=== PATIENT | female | born 1965 ===

== ENCOUNTER 2017-08-30 00:13 | Observation (INO) | payer OTHER ==
[2017-08-30 00:36] VITALS: BMI 25.7
[2017-08-30] MEDS ORDERED: Sodium Chloride 0.9% 1,000 ML IV ONE (00:37)
--- NOTE | 2017-08-30 00:39 | C.PDOC ---
History Of Present Illness 52 year old female presents to the ED with complaints of palpitations that began a few minutes prior to arrival. She denies any pervious similiar episodes. Patient denies chest pain, shortness of breath, weakness, numbness, or fever. History Per: Patient History/Exam Limitations: no limitations Onset/Duration Of Symptoms: Mins Current Symptoms Are (Timing): Still Present Pain Scale Rating Of: 0 Modifying Factors: None Exacerbating Factors: None Alleviating Factors: None Recent travel outside of the [place]: No Past Medical History Reviewed: Historical Data, Nursing Documentation, Vital Signs Vital Signs: Last Vital Signs Temp 98 F 08/30/17 00:43 Pulse 84 08/30/17 02:50 Resp 16 08/30/17 02:50 BP 120/85 08/30/17 02:50 Pulse Ox 100 08/30/17 02:50 Family History: States: Unknown Family Hx Review Of Systems Constitutional: Negative for: Fever, Chills Cardiovascular: Positive for: Palpitations. Negative for: Chest Pain Respiratory: Negative for: Cough, Shortness of Breath Gastrointestinal: Negative for: Nausea, Vomiting Neurological: Negative for: Weakness, Numbness Physical Exam - Physical Exam Appears: Non-toxic, In Acute Distress (patient appears anxious due to palpitations) Skin: Warm, Dry, No Diaphoretic Head: Atraumatic, Normacephalic Eye(s): bilateral: Normal Inspection, PERRL, EOMI Oral Mucosa: Moist Neck: Supple Chest: Symmetrical, No Deformity Cardiovascular: No Murmur, Other (Patient is tachycardic ) Respiratory: Normal Breath Sounds, No Rales, No Rhonchi, No Wheezing Gastrointestinal/Abdominal: Soft, No Tenderness, No Distention, No Guarding, No Rebound Extremity: Normal ROM, No Tenderness Neurological/Psych: Oriented x3, Normal Speech, Normal Cognition, Normal Cranial Nerves, No Cerebellar Signs, Normal Motor, Normal Sensation ED Course And Treatment - Laboratory Results Result Diagrams: 08/30/17 00:48 08/30/17 00:48 ECG: Interpreted By Me, Viewed By Me ECG Rhythm: SVT ECG Interpretation: No Acute Changes, Abnormal Interpretation Of ECG: SVT,abnormal tracings Rate From EC (repeat after adenosin-Sinus tach. nonspc. ST-T changes, rte of 102) O2 Sat by Pulse Oximetry: 100 (RA) Pulse Ox Interpretation: Normal - Radiology CXR: Interpreted by Me, Viewed By Me CXR Interpretation: Yes: No Acute Disease Progress Note: EKG, CXR, labs, and blood work were ordered. Patient was given adenosin 6 mg and then 12 mg. Disposition Discussed With : David Barlow Doctor Will See Patient In The: Hospital Counseled Patient/Family Regarding: Diagnosis - Disposition Disposition: HOSPITALIZED Disposition Time: 02:26 Condition: STABLE - POA Present On Arrival: None - Clinical Impression Clinical Impression: SVT (supraventricular tachycardia) - Scribe Statement The provider has reviewed the documentation as recorded by the Scribe Maine Alvarez All medical record entries made by the Isabelibe were at my direction and personally dictated by me. I have reviewed the chart and agree that the record accurately reflects my personal performance of the history, physical exam, medical decision making, and the department course for this patient. I have also personally directed, reviewed, and agree with the discharge instructions and disposition.
[2017-08-30 00:52] LABS: BASO # 0.1 K/uL (0.0-0.2); BASO % 0.7 % (0.0-2.0); EOS # 0.3 K/uL (0.0-0.7); EOS % 2.3 % (0.0-4.0); HEMATOCRIT 41.2 % (34.0-47.0); LYMPH # 7.6 K/uL (1.0-4.3); LYMPH % 54.3 % (20.0-40.0); MEAN CELL VOLUME 85.1 fL (81.0-99.0); MEAN CORPUSCULAR HEMOGLOBIN 30.4 pg (27.0-31.0); MEAN CORPUSCULAR HGB CONC 35.7 g/dL (33.0-37.0); MEAN PLATELET VOLUME 8.9 fL (7.2-11.7); MONO # 0.9 K/uL (0.0-0.8); MONO % 6.5 % (0.0-10.0); NRBC % 0.2 % (0.0-2.0); PLATELET COUNT 270 K/uL (130-400); RED CELL DISTRIBUTION WIDTH 14.3 % (11.5-14.5)
[2017-08-30 00:59] LABS: CHLORIDE 99 mmol/L (98-107); SODIUM 141 mmol/L (132-148)
[2017-08-30 01:01] LABS: ALB/GLOB RATIO 1.1 (1.0-2.1); AST/SGOT 27 U/L (14-36); BILIRUBIN,TOTAL 0.4 mg/dL (0.2-1.3); CARBON DIOXIDE 22 mmol/L (22-30); GFR AFRICAN-AMERICAN > 60; INR 0.9; PARTIAL THROMBOPLASTIN TIME 29 SECONDS (21-34)
[2017-08-30 01:02] LABS: ALKALINE PHOSPHATASE 65 U/L (38-126); ALT/SGPT 44 U/L (9-52); BLOOD UREA NITROGEN 14 mg/dL (7-17); CALCIUM 9.9 mg/dl (8.6-10.4); GLUCOSE,RANDOM 107 mg/dL (65-105)
[2017-08-30] MEDS ORDERED: Potassium Chloride 20 mEq ER Tab PO STA (01:20)
[2017-08-30] MEDS ORDERED: Potassium Chloride 20 mEq ER Tab PO ONE (01:21)
[2017-08-30 02:01] LABS: BASOPHIL 1 % (0-2); EOSINOPHIL 2 % (0-4); NEUTROPHIL 29 % (50-75); REACTIVE LYMPHOCYTES 7 % (0-0); TOTAL CELLS COUNTED 100
[2017-08-30] MEDS ORDERED: Sodium Chloride 0.9% 1,000 ML IV SCH (04:00)
[2017-08-30] MEDS: Pantoprazole 40 mg EC Tab PO SCH (09:10)
[2017-08-30] MEDS: Enoxaparin 40 mg Syringe SC SCH (09:10)
--- NOTE | 2017-08-30 09:51 | RAD ---
PROCEDURE: CHEST RADIOGRAPH, 1 VIEW HISTORY: chest pain COMPARISON: None available. FINDINGS: LUNGS: No focal consolidation. There are 2 tiny rounded densities left mid lung field the that could represent vessel on end versus tiny granulomata. . Follow-up chest radiographs at 2 month interval could be performed to assess stability PLEURA: No pneumothorax or pleural fluid seen. CARDIOVASCULAR: Normal. OSSEOUS STRUCTURES: No significant abnormalities. VISUALIZED UPPER ABDOMEN: Normal. OTHER FINDINGS: None. IMPRESSION: No acute consolidation. 2 tiny rounded density left mid to lower lung field may represent vessel on end artifact versus tiny granulomata. Follow-up chest radiograph at two month interval could be performed to assess stability. Note this report was placed in PA review folder for followup
--- NOTE | 2017-08-30 12:50 | CP.PCM.CON ---
History of Present Illness - History of Present Illness History of Present Illness: Consultation requested for evaluation of SVT HPI: 52-year-old female with no significant past medical history brought to the hospital with sudden onset of palpitations during sex with her . According to the patient this is her first episode denies having any significant stress drug use asked excess alcohol consumption. She had recently come back from [facility] about 2 weeks ago denies any sick contacts. Denies any chest pain shortness of breath headache nausea vomiting diarrhea or dysuria. Patient on arrival to the emergency room was given adenosine which resolved her SVT. Past medical history none however last visit to the physician was about 8-10 years ago. 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 Review of Systems - Constitutional Constitutional: As Per HPI - EENT Eyes: As Per HPI Nose/Mouth/Throat: As Per HPI - Breasts Breasts: As Per HPI - Cardiovascular Cardiovascular: As Per HPI - Respiratory Respiratory: As Per HPI - Gastrointestinal Gastrointestinal: As Per HPI - Genitourinary Genitourinary: As Per HPI - Reproductive: Female Reproductive:Female: As Per HPI - Musculoskeletal Musculoskeletal: As Per HPI - Integumentary Integumentary: As Per HPI - Neurological Neurological: As Per HPI - Psychiatric Psychiatric: As Per HPI - Endocrine Endocrine: As Per HPI - Hematologic/Lymphatic Hematologic: As Per HPI Past Patient History - Past Medical History & Family History Past Medical History?: Yes - Past Social History Smoking Status: Never Smoked - CARDIAC Hx Cardiac Disorders: Yes Other/Comment: palpatations at young age - PULMONARY Hx Respiratory Disorders: No - NEUROLOGICAL Hx Neurological Disorder: No - HEENT Hx HEENT Problems: No - RENAL Hx Chronic Kidney Disease: No - ENDOCRINE/METABOLIC Hx Endocrine Disorders: No - HEMATOLOGICAL/ONCOLOGICAL Hx Blood Disorders: Yes Other/Comment: hx hepatitis when young doesnt know type - INTEGUMENTARY Hx Dermatological Problems: No - MUSCULOSKELETAL/RHEUMATOLOGICAL Hx Musculoskeletal Disorders: No Hx Falls: No - GASTROINTESTINAL Hx Gastrointestinal Disorders: No - GENITOURINARY/GYNECOLOGICAL Hx Genitourinary Disorders: No - PSYCHIATRIC Hx Substance Use: No - SURGICAL HISTORY Hx Surgeries: Yes Hx Section: Yes (x2) Hx Tubal Ligation: Yes Other/Comment: ovarian cyst removed right ,left ovary half - ANESTHESIA Hx Anesthesia: Yes Hx Anesthesia Reactions: No Hx Malignant Hyperthermia: No Has any member of the family had a problem w/ anesthesia?: No Meds Home Medications: Home Medication List Medication Instructions Recorded Confirmed Type Metoprolol Tartrate 25 mg PO DAILY #30 tablet 09/01/17 Rx Allergies/Adverse Reactions: Allergies Allergy/AdvReac Type Severity Reaction Status Date / Time No Known Allergies Allergy Verified 08/30/17 00:48 - Medications Medications: Current Medications Aspirin (Aspirin) 325 mg PO DAILY [facility] Last Admin: 08/30/17 09:10 Dose: 325 mg Enoxaparin Sodium (Lovenox) 40 mg SC DAILY [facility] Last Admin: 08/30/17 09:10 Dose: 40 mg Sodium Chloride (Sodium Chloride 0.9%) 1,000 mls @ 30 mls/hr IV .Q24H [facility] Last Admin: 08/30/17 04:00 Dose: 30 mls/hr Pantoprazole Sodium (Protonix Ec Tab) 40 mg PO DAILY [facility] Last Admin: 08/30/17 09:10 Dose: 40 mg Physical Exam - Constitutional Appears: Well - Head Exam Head Exam: ATRAUMATIC, NORMAL INSPECTION, NORMOCEPHALIC - Eye Exam Eye Exam: EOMI, Normal appearance, PERRL Pupil Exam: NORMAL ACCOMODATION, PERRL - ENT Exam ENT Exam: Mucous Membranes Moist, Normal Exam - Neck Exam Neck exam: Positive for: Normal Inspection - Respiratory Exam Respiratory Exam: Clear to Auscultation Bilateral, NORMAL BREATHING PATTERN - Cardiovascular Exam Cardiovascular Exam: REGULAR RHYTHM - GI/Abdominal Exam GI & Abdominal Exam: Normal Bowel Sounds, Soft. absent: Tenderness - Rectal Exam Rectal Exam: NORMAL INSPECTION - Exam Exam: Circumcision, NORMAL INSPECTION External exam: NORMAL EXTERNAL EXAM Speculum exam: NORMAL SPECULUM EXAM Bimanual exam: NORMAL BIMANUAL EXAM - Extremities Exam Extremities exam: Positive for: normal inspection - Back Exam Back exam: NORMAL INSPECTION - Neurological Exam Neurological exam: Alert, CN II-XII Intact, Normal Gait, Oriented x3, Reflexes Normal - Psychiatric Exam Psychiatric exam: Normal Affect, Normal Mood - Skin Skin Exam: Dry, Intact, Normal Color, Warm Results - Vital Signs Recent Vital Signs: Last Vital Signs Temp 98.9 F 08/30/17 08:30 Pulse 80 08/30/17 08:30 Resp 18 08/30/17 08:30 BP 108/72 08/30/17 08:30 Pulse Ox 96 08/30/17 08:30 - Labs Result Diagrams: 09/01/17 06:11 09/01/17 06:11 Labs: Laboratory Results - last 24 hr 08/30/17 08/30/17 08/30/17 00:48 00:48 00:48 WBC 14.0 H RBC 4.84 Hgb 14.7 Hct 41.2 MCV 85.1 MCH 30.4 MCHC 35.7 RDW 14.3 Plt Count 270 MPV 8.9 Neut % (Auto) 36.2 L Lymph % (Auto) 54.3 H [place] % (Auto) 6.5 Eos % (Auto) 2.3 Baso % (Auto) 0.7 Neut # 5.1 Lymph # 7.6 H [place] # 0.9 H Eos # 0.3 Baso # 0.1 Neutrophils % (Manual) 29 L Lymphocytes % (Manual) 56 H Reactive Lymphs % 7 H Monocytes % (Manual) 5 Eosinophils % (Manual) 2 Basophils % (Manual) 1 Platelet Estimate Normal RBC Morphology Normal PT 10.2 INR 0.9 APTT 29 D-Dimer, Quantitative < 200 Sodium 141 Potassium 3.0 L Chloride 99 Carbon Dioxide 22 Anion Gap 23 H BUN 14 Creatinine 0.7 Est GFR ( Amer) > 60 Est GFR (Non-Af Amer) > 60 Random Glucose 107 H Calcium 9.9 Total Bilirubin 0.4 AST 27 ALT 44 Alkaline Phosphatase 65 Total Creatine Kinase CK-MB (Mass) Troponin I < 0.0120 Troponin I, Quant Total Protein 9.0 H Albumin 4.8 Globulin 4.2 H Albumin/Globulin Ratio 1.1 08/30/17 12:00 WBC RBC Hgb Hct MCV MCH MCHC RDW Plt Count MPV Neut % (Auto) Lymph % (Auto) [place] % (Auto) Eos % (Auto) Baso % (Auto) Neut # Lymph # [place] # Eos # Baso # Neutrophils % (Manual) Lymphocytes % (Manual) Reactive Lymphs % Monocytes % (Manual) Eosinophils % (Manual) Basophils % (Manual) Platelet Estimate RBC Morphology PT INR APTT D-Dimer, Quantitative Sodium Potassium Chloride Carbon Dioxide Anion Gap BUN Creatinine Est GFR ( Amer) Est GFR (Non-Af Amer) Random Glucose Calcium Total Bilirubin AST ALT Alkaline Phosphatase Total Creatine Kinase 101 CK-MB (Mass) 1.15 Troponin I Troponin I, Quant 0.0210 Total Protein Albumin Globulin Albumin/Globulin Ratio Assessment & Plan (1) SVT (supraventricular tachycardia) Assessment and Plan: Echo Serial TnI telemetry Status: Acute
--- NOTE | 2017-08-30 14:31 | CP.PCM.HP ---
Past Patient History - Past Medical History & Family History Past Medical History?: Yes - Past Social History Smoking Status: Never Smoked - CARDIAC Hx Cardiac Disorders: Yes Other/Comment: palpatations at young age - PULMONARY Hx Respiratory Disorders: No - NEUROLOGICAL Hx Neurological Disorder: No - HEENT Hx HEENT Problems: No - RENAL Hx Chronic Kidney Disease: No - ENDOCRINE/METABOLIC Hx Endocrine Disorders: No - HEMATOLOGICAL/ONCOLOGICAL Hx Blood Disorders: Yes Other/Comment: hx hepatitis when young doesnt know type - INTEGUMENTARY Hx Dermatological Problems: No - MUSCULOSKELETAL/RHEUMATOLOGICAL Hx Musculoskeletal Disorders: No Hx Falls: No - GASTROINTESTINAL Hx Gastrointestinal Disorders: No - GENITOURINARY/GYNECOLOGICAL Hx Genitourinary Disorders: No - PSYCHIATRIC Hx Substance Use: No - SURGICAL HISTORY Hx Surgeries: Yes Hx Section: Yes (x2) Hx Tubal Ligation: Yes Other/Comment: ovarian cyst removed right ,left ovary half - ANESTHESIA Hx Anesthesia: Yes Hx Anesthesia Reactions: No Hx Malignant Hyperthermia: No Has any member of the family had a problem w/ anesthesia?: No Meds Allergies/Adverse Reactions: Allergies Allergy/AdvReac Type Severity Reaction Status Date / Time No Known Allergies Allergy Verified 08/30/17 00:48 Physical Exam - Constitutional Appears: Well - Head Exam Head Exam: ATRAUMATIC, NORMAL INSPECTION, NORMOCEPHALIC - Eye Exam Eye Exam: EOMI, Normal appearance, PERRL Pupil Exam: NORMAL ACCOMODATION, PERRL - ENT Exam ENT Exam: Mucous Membranes Moist, Normal Exam - Neck Exam Neck exam: Positive for: Normal Inspection - Respiratory Exam Respiratory Exam: Decreased Breath Sounds - Cardiovascular Exam Cardiovascular Exam: REGULAR RHYTHM, +S1, +S2 - GI/Abdominal Exam GI & Abdominal Exam: Diminished Bowel Sounds, Soft - Rectal Exam Rectal Exam: Deferred Results - Vital Signs Recent Vital Signs: Last Vital Signs Temp 98.9 F 08/30/17 08:30 Pulse 80 08/30/17 08:30 Resp 18 08/30/17 08:30 BP 108/72 08/30/17 08:30 Pulse Ox 96 08/30/17 08:30 - Labs Result Diagrams: 08/30/17 00:48 08/30/17 00:48 Labs: Laboratory Results - last 24 hr 08/30/17 08/30/17 08/30/17 00:48 00:48 00:48 WBC 14.0 H RBC 4.84 Hgb 14.7 Hct 41.2 MCV 85.1 MCH 30.4 MCHC 35.7 RDW 14.3 Plt Count 270 MPV 8.9 Neut % (Auto) 36.2 L Lymph % (Auto) 54.3 H [place] % (Auto) 6.5 Eos % (Auto) 2.3 Baso % (Auto) 0.7 Neut # 5.1 Lymph # 7.6 H [place] # 0.9 H Eos # 0.3 Baso # 0.1 Neutrophils % (Manual) 29 L Lymphocytes % (Manual) 56 H Reactive Lymphs % 7 H Monocytes % (Manual) 5 Eosinophils % (Manual) 2 Basophils % (Manual) 1 Platelet Estimate Normal RBC Morphology Normal PT 10.2 INR 0.9 APTT 29 D-Dimer, Quantitative < 200 Sodium 141 Potassium 3.0 L Chloride 99 Carbon Dioxide 22 Anion Gap 23 H BUN 14 Creatinine 0.7 Est GFR ( Amer) > 60 Est GFR (Non-Af Amer) > 60 Random Glucose 107 H Calcium 9.9 Total Bilirubin 0.4 AST 27 ALT 44 Alkaline Phosphatase 65 Total Creatine Kinase CK-MB (Mass) Troponin I < 0.0120 Troponin I, Quant Total Protein 9.0 H Albumin 4.8 Globulin 4.2 H Albumin/Globulin Ratio 1.1 08/30/17 12:00 WBC RBC Hgb Hct MCV MCH MCHC RDW Plt Count MPV Neut % (Auto) Lymph % (Auto) [place] % (Auto) Eos % (Auto) Baso % (Auto) Neut # Lymph # [place] # Eos # Baso # Neutrophils % (Manual) Lymphocytes % (Manual) Reactive Lymphs % Monocytes % (Manual) Eosinophils % (Manual) Basophils % (Manual) Platelet Estimate RBC Morphology PT INR APTT D-Dimer, Quantitative Sodium Potassium Chloride Carbon Dioxide Anion Gap BUN Creatinine Est GFR ( Amer) Est GFR (Non-Af Amer) Random Glucose Calcium Total Bilirubin AST ALT Alkaline Phosphatase Total Creatine Kinase 101 CK-MB (Mass) 1.15 Troponin I Troponin I, Quant 0.0210 Total Protein Albumin Globulin Albumin/Globulin Ratio
[2017-08-30] MEDS: Potassium Chloride 20 mEq ER Tab PO SCH ×2 (17:30→19:57)
--- NOTE | 2017-08-30 18:08 | CP.PCM.HP ---
<Liam Alexandre - Last Filed: 08/30/17 18:03> History of Present Illness - History of Present Illness History of Present Illness: CC: Palpitations This patient is a 52yo F w/ no PMhx who is coming to the hospital with sudden heart palpitations while she was having sex with her . This has never happened to her before. She denies any significant stress in her life, drug use , or excessive alcohol consumption in the recent past. She recently came back from [facility] 2 weeks ago, denies any sick contacts. Otherwise denies fevers/ chills, TAMAYO, CP, SOb, abdominal pain, N/V/D, dysuria/freq/urg or lower extremity pain/swelling. When she arrived in the ED, they gave her a total of 18mg of adenosine which resolved her SVT. She has not had any SVT's since then or heart palpitations. 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, independent in all IADL and ADL Present on Admission - Present on Admission Any Indicators Present on Admission: No History of DVT/PE: No History of Uncontrolled Diabetes: No Urinary Catheter: No Decubitus Ulcer Present: No Review of Systems - Constitutional Constitutional: As Per HPI Past Patient History - Past Medical History & Family History Past Medical History?: Yes - Past Social History Smoking Status: Never Smoked - CARDIAC Hx Cardiac Disorders: Yes Other/Comment: palpatations at young age - PULMONARY Hx Respiratory Disorders: No - NEUROLOGICAL Hx Neurological Disorder: No - HEENT Hx HEENT Problems: No - RENAL Hx Chronic Kidney Disease: No - ENDOCRINE/METABOLIC Hx Endocrine Disorders: No - HEMATOLOGICAL/ONCOLOGICAL Hx Blood Disorders: Yes Other/Comment: hx hepatitis when young doesnt know type - INTEGUMENTARY Hx Dermatological Problems: No - MUSCULOSKELETAL/RHEUMATOLOGICAL Hx Musculoskeletal Disorders: No Hx Falls: No - GASTROINTESTINAL Hx Gastrointestinal Disorders: No - GENITOURINARY/GYNECOLOGICAL Hx Genitourinary Disorders: No - PSYCHIATRIC Hx Substance Use: No - SURGICAL HISTORY Hx Surgeries: Yes Hx Section: Yes (x2) Hx Tubal Ligation: Yes Other/Comment: ovarian cyst removed right ,left ovary half - ANESTHESIA Hx Anesthesia: Yes Hx Anesthesia Reactions: No Hx Malignant Hyperthermia: No Has any member of the family had a problem w/ anesthesia?: No Meds Allergies/Adverse Reactions: Allergies Allergy/AdvReac Type Severity Reaction Status Date / Time No Known Allergies Allergy Verified 08/30/17 00:48 Physical Exam - Constitutional Appears: Non-toxic - Head Exam Head Exam: ATRAUMATIC - Eye Exam Eye Exam: EOMI, Normal appearance Pupil Exam: PERRL - ENT Exam ENT Exam: Mucous Membranes Moist - Neck Exam Neck exam: Positive for: Full Rom. Negative for: Lymphadenopathy, Thyromegaly - Respiratory Exam Respiratory Exam: Clear to Auscultation Bilateral, NORMAL BREATHING PATTERN. absent: Rales, Rhonchi, Wheezes - Cardiovascular Exam Cardiovascular Exam: REGULAR RHYTHM, +S1, +S2 - GI/Abdominal Exam GI & Abdominal Exam: Normal Bowel Sounds, Soft - Extremities Exam Extremities exam: Positive for: full ROM. Negative for: calf tenderness, pedal edema - Back Exam Back exam: NORMAL INSPECTION. absent: CVA tenderness (L), CVA tenderness (R) - Neurological Exam Neurological exam: Alert, CN II-XII Intact, Oriented x3 - Psychiatric Exam Psychiatric exam: Normal Affect - Skin Skin Exam: Warm Results - Vital Signs Recent Vital Signs: Last Vital Signs Temp 98.1 F 08/30/17 15:00 Pulse 87 08/30/17 15:00 Resp 20 08/30/17 15:00 BP 117/73 08/30/17 15:00 Pulse Ox 97 08/30/17 15:00 - Labs Result Diagrams: 08/30/17 00:48 08/30/17 00:48 Labs: Laboratory Results - last 24 hr 08/30/17 08/30/17 08/30/17 00:48 00:48 00:48 WBC 14.0 H RBC 4.84 Hgb 14.7 Hct 41.2 MCV 85.1 MCH 30.4 MCHC 35.7 RDW 14.3 Plt Count 270 MPV 8.9 Neut % (Auto) 36.2 L Lymph % (Auto) 54.3 H Catron % (Auto) 6.5 Eos % (Auto) 2.3 Baso % (Auto) 0.7 Neut # 5.1 Lymph # 7.6 H Catron # 0.9 H Eos # 0.3 Baso # 0.1 Neutrophils % (Manual) 29 L Lymphocytes % (Manual) 56 H Reactive Lymphs % 7 H Monocytes % (Manual) 5 Eosinophils % (Manual) 2 Basophils % (Manual) 1 Platelet Estimate Normal RBC Morphology Normal PT 10.2 INR 0.9 APTT 29 D-Dimer, Quantitative < 200 Sodium 141 Potassium 3.0 L Chloride 99 Carbon Dioxide 22 Anion Gap 23 H BUN 14 Creatinine 0.7 Est GFR ( Amer) > 60 Est GFR (Non-Af Amer) > 60 Random Glucose 107 H Calcium 9.9 Total Bilirubin 0.4 AST 27 ALT 44 Alkaline Phosphatase 65 Total Creatine Kinase CK-MB (Mass) Troponin I < 0.0120 Troponin I, Quant NT-Pro-B Natriuret Pep Total Protein 9.0 H Albumin 4.8 Globulin 4.2 H Albumin/Globulin Ratio 1.1 08/30/17 08/30/17 08/30/17 12:00 14:43 14:43 WBC RBC Hgb Hct MCV MCH MCHC RDW Plt Count MPV Neut % (Auto) Lymph % (Auto) Catron % (Auto) Eos % (Auto) Baso % (Auto) Neut # Lymph # Catron # Eos # Baso # Neutrophils % (Manual) Lymphocytes % (Manual) Reactive Lymphs % Monocytes % (Manual) Eosinophils % (Manual) Basophils % (Manual) Platelet Estimate RBC Morphology PT INR APTT D-Dimer, Quantitative Sodium Potassium Chloride Carbon Dioxide Anion Gap BUN Creatinine Est GFR ( Amer) Est GFR (Non-Af Amer) Random Glucose Calcium Total Bilirubin AST ALT Alkaline Phosphatase Total Creatine Kinase 101 95 CK-MB (Mass) 1.15 0.90 Troponin I Troponin I, Quant 0.0210 0.0170 NT-Pro-B Natriuret Pep 380 Total Protein Albumin Globulin Albumin/Globulin Ratio Assessment & Plan - Assessment and Plan (Free Text) Assessment: 52yo F admitted for SVT's SVT -patient has been asymptomatic during event -f/u echo -MELVIN's negative -Dr. Eric; cardiology; appreciate recs -can push adenosine if becomes symptomatic again; can also do vagal maneuvers Incidental findings on X-Ray -f/u formal chest xray 4 views tomorrow -small granulomatous foci seen on portable chest x-ray -patient asymptomatic; no smoking history; no history of lung cancer in family prophylaxis Pepcid Lovenox Heart healthy diet f/u HbA1C, TSH/FreeT4, ELLIE/Rf/CRP/ESR Case discussed and seen with Dr. Janet Alexandre PGY2 Decision To Admit - Pt Status Changed To: Hospital Disposition Of: Observation - . Bed Request Type: Telemetry Admitting Physician: Lisa Gonzales <Lisa Gonzales V - Last Filed: 08/31/17 22:00> Results - Vital Signs Recent Vital Signs: Last Vital Signs Temp 97.9 F 08/30/17 23:10 Pulse 63 08/31/17 04:00 Resp 20 08/30/17 23:10 BP 105/70 08/30/17 23:10 Pulse Ox 98 08/30/17 23:10 - Labs Result Diagrams: 08/31/17 08:21 08/31/17 08:27 Labs: Laboratory Results - last 24 hr 08/30/17 08/30/17 08/30/17 12:00 14:43 14:43 WBC RBC Hgb Hct MCV MCH MCHC RDW Plt Count MPV Neut % (Auto) Lymph % (Auto) Catron % (Auto) Eos % (Auto) Baso % (Auto) Neut # Lymph # Catron # Eos # Baso # Total Creatine Kinase 101 95 CK-MB (Mass) 1.15 0.90 Troponin I, Quant 0.0210 0.0170 NT-Pro-B Natriuret Pep 380 Urine Opiates Screen Urine Methadone Screen Ur Barbiturates Screen Ur Phencyclidine Scrn Ur Amphetamines Screen U Benzodiazepines Scrn U Oth Cocaine Metabols U Cannabinoids Screen 08/30/17 08/31/17 23:01 08:21 WBC 8.1 RBC 4.71 Hgb 14.4 Hct 39.8 MCV 84.6 MCH 30.6 MCHC 36.2 RDW 14.1 Plt Count 241 MPV 8.7 Neut % (Auto) 55.7 Lymph % (Auto) 34.9 Catron % (Auto) 5.5 Eos % (Auto) 3.2 Baso % (Auto) 0.7 Neut # 4.5 Lymph # 2.8 Catron # 0.5 Eos # 0.3 Baso # 0.1 Total Creatine Kinase CK-MB (Mass) Troponin I, Quant NT-Pro-B Natriuret Pep Urine Opiates Screen Negative Urine Methadone Screen Negative Ur Barbiturates Screen Negative Ur Phencyclidine Scrn Negative Ur Amphetamines Screen Negative U Benzodiazepines Scrn Negative U Oth Cocaine Metabols Negative U Cannabinoids Screen Negative Attending/Attestation - Attestation I have personally seen and examined this patient.: Yes I have fully participated in the care of the patient.: Yes I have reviewed all pertinent clinical information: Yes Notes (Text): This is a late computer entry for 08/30/17. Patient seen, examined and case discussed with day-time resident. Discussed with Dr. Mahin Barlow, who requests patient to be transferred to the hospital service, discussed case with attending transferred to the hospitalist service at 5:34PM on 08/30/17 to assume further management. Per review of chart, Patient came in with SVT requiring Adenosine 6mg and Adenosine 12mg prior to converting to normal sinus rhythm. Patient seen at bedside with her who she permits to discuss her medical information with. Patient denies thyroid problems, denies stressors, denies fever, is not anemic, denies URI symptoms, reports occasional wine. Patient's pre-emptive by sexual intercourse with her , which she reports has not happened before. On telemetry she is in NSR and reviewed her prior EKGs from before Discussed admitting orders with day-time resident. Pending echocardiogram and cardiology recommendations Assessment/Plan 1) SVT * patient had palpitations during intercourse * In ED, Adenosine 6mg IV X1, Adenosine 12mg IVX1, and then converted * on telemetry at NSR * Pending echocardiogram * Cardiology (Dr. Eric) on board-->f/u recommendations * MELVIN negative. * Patient is afebrile, not anemic, will check UDS, thyroid studies, ESR, CRP, ELLIE, RF * Patient sister recently diagnosed with lupus * If patient is asymptomatic and in SVT, attempt vagal manuevers or depending clinical situation f/u ACLS protocol 2) Abnormal Chest Xray * f/u PA/Lateral chest xray 4 views tomorrow * small granulomatous foci seen on portable chest x-ray * patient asymptomatic; no smoking history; no history of lung cancer in family 3) Prophylaxis * Protonix 40mg PO daily * Lovenox 40mg subq daily * Heart healthy diet
[2017-08-31 08:33] LABS: BASO # 0.1 K/uL (0.0-0.2); BASO % 0.7 % (0.0-2.0); EOS # 0.3 K/uL (0.0-0.7); EOS % 3.2 % (0.0-4.0); HEMATOCRIT 39.8 % (34.0-47.0); LYMPH # 2.8 K/uL (1.0-4.3); LYMPH % 34.9 % (20.0-40.0); MEAN CELL VOLUME 84.6 fL (81.0-99.0); MEAN CORPUSCULAR HEMOGLOBIN 30.6 pg (27.0-31.0); MEAN CORPUSCULAR HGB CONC 36.2 g/dL (33.0-37.0); MEAN PLATELET VOLUME 8.7 fL (7.2-11.7); MONO # 0.5 K/uL (0.0-0.8); MONO % 5.5 % (0.0-10.0); NRBC % 0.1 % (0.0-2.0); RED CELL DISTRIBUTION WIDTH 14.1 % (11.5-14.5); WHITE BLOOD COUNT 8.1 K/uL (4.8-10.8)
[2017-08-31 09:22] LABS: CHLORIDE 101 mmol/L (98-107); SODIUM 141 mmol/L (132-148)
[2017-08-31 09:24] LABS: CARBON DIOXIDE 24 mmol/L (22-30); CHOLESTEROL 186 mg/dL (0-199); GFR AFRICAN-AMERICAN > 60
[2017-08-31 09:25] LABS: ALB/GLOB RATIO 1.2 (1.0-2.1); ALKALINE PHOSPHATASE 51 U/L (38-126); ALT/SGPT 32 U/L (9-52); AST/SGOT 26 U/L (14-36); BILIRUBIN,TOTAL 0.6 mg/dL (0.2-1.3); BLOOD UREA NITROGEN 19 mg/dL (7-17); CALCIUM 9.4 mg/dl (8.6-10.4); GLUCOSE,RANDOM 89 mg/dL (65-105); POTASSIUM 5.3 mmol/L (3.6-5.2); TOTAL PROTEIN 8.3 g/dL (6.3-8.3)
[2017-08-31] MEDS: Pantoprazole 40 mg EC Tab PO SCH (09:29)
[2017-08-31] MEDS: Enoxaparin 40 mg Syringe SC SCH (09:31)
[2017-08-31 09:32] LABS: THYROID STIMULATING HORMONE 1.54 mIU/L (0.46-4.68)
[2017-08-31 10:20] LABS: FREE T4 0.96 ng/dL (0.78-2.19)
--- NOTE | 2017-08-31 11:00 | CP.PCM.PN ---
<Liam Alexandre - Last Filed: 08/31/17 14:06> Subjective - Date & Time of Evaluation Date of Evaluation: 08/31/17 Time of Evaluation: 10:59 - Subjective Subjective: patient seen and examined at bedside this AM; no overnight complaints and no acute complaints; denies any fevers/chills, TAMAYO, CP, SOB, abdominal pain, N/V/D, dysuria/freq/urg or lower extremity pain/swelling. Objective - Vital Signs/Intake and Output Vital Signs (last 24 hours): Temp Pulse Resp BP Pulse Ox 98.6 F 78 18 117/78 97 08/31/17 08:00 08/31/17 08:00 08/31/17 08:00 08/31/17 08:00 08/31/17 08:00 Intake and Output: 08/31/17 08/31/17 06:59 18:59 Intake Total 180 Balance 180 - Medications Medications: Current Medications Aspirin (Aspirin) 325 mg PO DAILY [facility] Last Admin: 08/31/17 09:29 Dose: 325 mg Enoxaparin Sodium (Lovenox) 40 mg SC DAILY [facility] Last Admin: 08/31/17 09:31 Dose: 40 mg Pantoprazole Sodium (Protonix Ec Tab) 40 mg PO DAILY [facility] Last Admin: 08/31/17 09:29 Dose: 40 mg - Labs Labs: 08/31/17 08:21 08/31/17 08:27 PT 10.2 SECONDS (9.7-12.2) 08/30/17 00:48 INR 0.9 08/30/17 00:48 APTT 29 SECONDS (21-34) 08/30/17 00:48 - Constitutional Appears: Well, Non-toxic - Head Exam Head Exam: ATRAUMATIC - Eye Exam Eye Exam: EOMI, Normal appearance Pupil Exam: PERRL - ENT Exam ENT Exam: Mucous Membranes Moist - Neck Exam Neck Exam: Full ROM. absent: Lymphadenopathy - Respiratory Exam Respiratory Exam: Clear to Ausculation Bilateral, NORMAL BREATHING PATTERN. absent: Rales, Rhonchi, Wheezes - Cardiovascular Exam Cardiovascular Exam: REGULAR RHYTHM, +S1, +S2 - GI/Abdominal Exam GI & Abdominal Exam: Soft, Normal Bowel Sounds - Extremities Exam Extremities Exam: Full ROM. absent: Calf Tenderness - Back Exam Back Exam: NORMAL INSPECTION. absent: CVA tenderness (L), CVA tenderness (R) - Neurological Exam Neurological Exam: Alert, Awake, Oriented x3 - Psychiatric Exam Psychiatric exam: Normal Affect - Skin Skin Exam: Warm Assessment and Plan - Assessment and Plan (Free Text) Assessment: 52yo F admitted for SVT's SVT; resolved -patient has been asymptomatic during hospital stay -f/u echo; pending results -MELVIN's negative -Dr. Eric; cardiology; appreciate recs -can push adenosine if becomes symptomatic again; can also do vagal maneuvers Incidental findings on X-Ray -f/u formal chest 2 views today; f/u results -small granulomatous foci seen on portable chest x-ray -patient asymptomatic; no smoking history; no history of lung cancer in family prophylaxis Pepcid Lovenox Heart healthy diet f/u HbA1C, TSH/FreeT4, ELLIE/Rf/CRP/ESR drug screen negative Case discussed and seen with Dr. Janet Alexandre PGY2 <Lisa Gonzales V - Last Filed: 08/31/17 22:04> Objective - Vital Signs/Intake and Output Vital Signs (last 24 hours): Temp Pulse Resp BP Pulse Ox 98 F 83 20 106/67 98 08/31/17 15:00 08/31/17 15:00 08/31/17 15:00 08/31/17 15:00 08/31/17 15:00 Intake and Output: 08/31/17 09/01/17 18:59 06:59 Intake Total 480 Balance 480 - Medications Medications: Current Medications Aspirin (Aspirin) 325 mg PO DAILY [facility] Last Admin: 08/31/17 09:29 Dose: 325 mg Enoxaparin Sodium (Lovenox) 40 mg SC DAILY [facility] Last Admin: 08/31/17 09:31 Dose: 40 mg Pantoprazole Sodium (Protonix Ec Tab) 40 mg PO DAILY [facility] Last Admin: 08/31/17 09:29 Dose: 40 mg - Labs Labs: 08/31/17 08:21 08/31/17 08:27 PT 10.2 SECONDS (9.7-12.2) 08/30/17 00:48 INR 0.9 08/30/17 00:48 APTT 29 SECONDS (21-34) 08/30/17 00:48 Attending/Attestation - Attestation I have personally seen and examined this patient.: Yes I have fully participated in the care of the patient.: Yes I have reviewed all pertinent clinical information, including history, physical exam and plan: Yes Notes (Text): Patient seen, examined, and case discussed with day-time resident. Patient seen this afternoon with . Patient is asymptomatic and in NSR on telemetry. Patient denies acute complaints. Patient reports today she has had something similar to her arrhythmia before in her childhood, wherein when she bent over it would stop. She has never been formally worked up by behavioral assistant. Assessment/Plan 1) SVT * patient had palpitations during intercourse * In ED, Adenosine 6mg IV X1, Adenosine 12mg IVX1, and then converted * on telemetry at NSR * Pending echocardiogram * Cardiology (Dr. Eric) on board-->f/u recommendations * MELVIN negative X 3 * ESR: 25, CRP: low * ELLIE and RF pending * UDS: negative * Thyroid studies: within normal * Lipid panel: normal * Pending hgba1c * Patient is afebrile, not anemic, will check UDS * Patient sister recently diagnosed with lupus-->antinuclear antibody * If patient is asymptomatic and in SVT, attempt vagal manuevers or depending clinical situation f/u ACLS protocol 2) Abnormal Chest Xray * f/u PA/Lateral chest xray 4 views tomorrow * small granulomatous foci seen on portable chest x-ray * patient asymptomatic; no smoking history; no history of lung cancer in family 3) Prophylaxis * Protonix 40mg PO daily * Lovenox 40mg subq daily * Heart healthy diet Disposition: asymptomatic, pending echocardiogram, cardiology evaluation; possible change to inpatient status pending cardiology recommendations
--- NOTE | 2017-08-31 12:21 | RAD ---
HISTORY: granulomata on portable COMPARISON: Comparison chest 08/30/2017 TECHNIQUE: Chest PA and lateral FINDINGS: LUNGS: No focal consolidation. Re- demonstrated are at least 2 tiny granulomata left mid to lower lung field. . Questionable mild biapical pleural thickening PLEURA: No significant pleural effusion identified. No pneumothorax apparent. CARDIOVASCULAR: Normal. OSSEOUS STRUCTURES: Minor multilevel degenerative spondylosis of the thoracic spine VISUALIZED UPPER ABDOMEN: Normal. OTHER FINDINGS: None. IMPRESSION: No focal consolidation. See above discussion for additional details and findings
[2017-08-31 16:22] VITALS: RESP 20
--- NOTE | 2017-08-31 22:48 | CP.PCM.PN ---
Subjective - Date & Time of Evaluation Date of Evaluation: 08/31/17 Time of Evaluation: 22:48 - Subjective Subjective: echo pending rhythm stable Objective - Vital Signs/Intake and Output Vital Signs (last 24 hours): Temp Pulse Resp BP Pulse Ox 98 F 83 20 106/67 98 08/31/17 15:00 08/31/17 15:00 08/31/17 15:00 08/31/17 15:00 08/31/17 15:00 Intake and Output: 08/31/17 09/01/17 18:59 06:59 Intake Total 480 Balance 480 - Medications Medications: Current Medications Aspirin (Aspirin) 325 mg PO DAILY [facility] Last Admin: 08/31/17 09:29 Dose: 325 mg Enoxaparin Sodium (Lovenox) 40 mg SC DAILY [facility] Last Admin: 08/31/17 09:31 Dose: 40 mg Pantoprazole Sodium (Protonix Ec Tab) 40 mg PO DAILY [facility] Last Admin: 08/31/17 09:29 Dose: 40 mg - Labs Labs: 08/31/17 08:21 08/31/17 08:27 PT 10.2 SECONDS (9.7-12.2) 08/30/17 00:48 INR 0.9 08/30/17 00:48 APTT 29 SECONDS (21-34) 08/30/17 00:48 - Constitutional Appears: Well - Head Exam Head Exam: ATRAUMATIC, NORMAL INSPECTION, NORMOCEPHALIC - Eye Exam Eye Exam: EOMI, Normal appearance, PERRL Pupil Exam: NORMAL ACCOMODATION, PERRL - ENT Exam ENT Exam: Mucous Membranes Moist, Normal Exam - Neck Exam Neck Exam: Full ROM, Normal Inspection. absent: Lymphadenopathy - Respiratory Exam Respiratory Exam: Clear to Ausculation Bilateral, NORMAL BREATHING PATTERN - Cardiovascular Exam Cardiovascular Exam: REGULAR RHYTHM, +S1, +S2. absent: Murmur - GI/Abdominal Exam GI & Abdominal Exam: Soft, Normal Bowel Sounds. absent: Tenderness - Rectal Exam Rectal Exam: NORMAL INSPECTION - Exam Exam: Circumcision, NORMAL INSPECTION External exam: NORMAL EXTERNAL EXAM Speculum exam: NORMAL SPECULUM EXAM Bimanual exam: NORMAL BIMANUAL EXAM - Extremities Exam Extremities Exam: Full ROM, Normal Capillary Refill, Normal Inspection. absent : Joint Swelling, Pedal Edema - Back Exam Back Exam: NORMAL INSPECTION - Neurological Exam Neurological Exam: Alert, Awake, CN II-XII Intact, Normal Gait, Oriented x3 - Psychiatric Exam Psychiatric exam: Normal Affect, Normal Mood - Skin Skin Exam: Dry, Intact, Normal Color, Warm Assessment and Plan (1) SVT (supraventricular tachycardia) Assessment & Plan: echo monitor on telemetry bb Status: Acute
[2017-09-01 06:22] LABS: BASO # 0.1 K/uL (0.0-0.2); BASO % 0.9 % (0.0-2.0); EOS # 0.3 K/uL (0.0-0.7); EOS % 3.3 % (0.0-4.0); HEMATOCRIT 38.6 % (34.0-47.0); LYMPH # 2.9 K/uL (1.0-4.3); LYMPH % 37.3 % (20.0-40.0); MEAN CELL VOLUME 84.4 fL (81.0-99.0); MEAN CORPUSCULAR HEMOGLOBIN 30.7 pg (27.0-31.0); MEAN CORPUSCULAR HGB CONC 36.3 g/dL (33.0-37.0); MEAN PLATELET VOLUME 9.1 fL (7.2-11.7); MONO # 0.6 K/uL (0.0-0.8); NRBC % 0.2 % (0.0-2.0); WHITE BLOOD COUNT 7.9 K/uL (4.8-10.8)
[2017-09-01 06:34] LABS: CHLORIDE 100 mmol/L (98-107)
[2017-09-01 06:35] LABS: POTASSIUM 4.5 mmol/L (3.6-5.2); SODIUM 138 mmol/L (132-148)
[2017-09-01 06:37] LABS: ALB/GLOB RATIO 1.2 (1.0-2.1); ALKALINE PHOSPHATASE 43 U/L (38-126); AST/SGOT 23 U/L (14-36); BILIRUBIN,TOTAL 0.5 mg/dL (0.2-1.3); CARBON DIOXIDE 26 mmol/L (22-30); GFR AFRICAN-AMERICAN > 60; TOTAL PROTEIN 7.3 g/dL (6.3-8.3)
[2017-09-01 06:38] LABS: ALT/SGPT 32 U/L (9-52); BLOOD UREA NITROGEN 18 mg/dL (7-17); CALCIUM 9.3 mg/dl (8.6-10.4); GLUCOSE,RANDOM 82 mg/dL (65-105); MAGNESIUM 2.1 mg/dL (1.6-2.3)
[2017-09-01 08:19] VITALS: TEMP 98.2
--- NOTE | 2017-09-01 08:36 | CP.PCM.PN ---
Objective - Vital Signs/Intake and Output Vital Signs (last 24 hours): Temp Pulse Resp BP Pulse Ox 98.2 F 79 20 116/76 97 09/01/17 07:25 09/01/17 07:25 09/01/17 07:25 09/01/17 07:25 09/01/17 07:25 Intake and Output: 09/01/17 09/01/17 06:59 18:59 Intake Total 500 Balance 500 - Medications Medications: Current Medications Aspirin (Aspirin) 325 mg PO DAILY [facility] Last Admin: 08/31/17 09:29 Dose: 325 mg Enoxaparin Sodium (Lovenox) 40 mg SC DAILY [facility] Last Admin: 08/31/17 09:31 Dose: 40 mg Pantoprazole Sodium (Protonix Ec Tab) 40 mg PO DAILY [facility] Last Admin: 08/31/17 09:29 Dose: 40 mg - Labs Labs: 09/01/17 06:11 09/01/17 06:11 PT 10.2 SECONDS (9.7-12.2) 08/30/17 00:48 INR 0.9 08/30/17 00:48 APTT 29 SECONDS (21-34) 08/30/17 00:48
[2017-09-01] MEDS: Pantoprazole 40 mg EC Tab PO SCH (09:40)
[2017-09-01] MEDS: Enoxaparin 40 mg Syringe SC SCH (09:40)
--- NOTE | 2017-09-01 10:22 | CP.PCM.PN ---
<KINJALBARBARA - Last Filed: 09/01/17 15:58> Subjective - Date & Time of Evaluation Date of Evaluation: 09/01/17 Time of Evaluation: 09:15 - Subjective Subjective: Barbara Tierney DO PGY1 - Cardiology Progress Note for Dr. Eric Patient seen and examined at bedside. No events overnight. Patient reports she is no longer having any of her prior symptoms; no CP, palpitations, SOB, leg swelling/pain. Objective - Vital Signs/Intake and Output Vital Signs (last 24 hours): Temp Pulse Resp BP Pulse Ox 98.2 F 79 20 116/76 97 09/01/17 07:25 09/01/17 07:25 09/01/17 07:25 09/01/17 07:25 09/01/17 07:25 Intake and Output: 09/01/17 09/01/17 06:59 18:59 Intake Total 500 Balance 500 - Medications Medications: Current Medications Aspirin (Aspirin) 325 mg PO DAILY [facility] Last Admin: 09/01/17 09:40 Dose: 325 mg Enoxaparin Sodium (Lovenox) 40 mg SC DAILY [facility] Last Admin: 09/01/17 09:40 Dose: 40 mg Pantoprazole Sodium (Protonix Ec Tab) 40 mg PO DAILY [facility] Last Admin: 09/01/17 09:40 Dose: 40 mg - Labs Labs: 09/01/17 06:11 09/01/17 06:11 PT 10.2 SECONDS (9.7-12.2) 08/30/17 00:48 INR 0.9 08/30/17 00:48 APTT 29 SECONDS (21-34) 08/30/17 00:48 - Constitutional Appears: Non-toxic, No Acute Distress - Head Exam Head Exam: ATRAUMATIC, NORMOCEPHALIC - Eye Exam Eye Exam: EOMI, Normal appearance - ENT Exam ENT Exam: Mucous Membranes Moist - Neck Exam Neck Exam: Full ROM, Normal Inspection - Respiratory Exam Respiratory Exam: Clear to Ausculation Bilateral. absent: Rales, Rhonchi, Wheezes - Cardiovascular Exam Cardiovascular Exam: RRR, +S1, +S2. absent: Tachycardia - GI/Abdominal Exam GI & Abdominal Exam: Soft. absent: Tenderness - Extremities Exam Extremities Exam: absent: Calf Tenderness, Pedal Edema - Neurological Exam Neurological Exam: Alert, Awake, Oriented x3 - Psychiatric Exam Psychiatric exam: Normal Affect, Normal Mood - Skin Skin Exam: Dry, Intact Assessment and Plan - Assessment and Plan (Free Text) Assessment: 52 yo F with no significant PMH and no cardiac risk factors presented with palpitations, noted to have SVT which resolved after adenosine Plan: 1. SVT - Patient received 6mg then 12mg in the ER which abated the SVT - No episodes of SVT since admission; patient is asymptomatic - Echocardiogram complete, normal - Patient has family history of lupus, ELLIE negative - Patient should continue cardioprotective ASA, BB, ACEi - Patient may be discharged home with outpatient holter monitor Patient discussed and reviewed with attending <Kevyn Eric - Last Filed: 10/01/17 23:40> Objective - Vital Signs/Intake and Output Vital Signs (last 24 hours): Temp Pulse Resp BP Pulse Ox 98.2 F 80 20 110/75 95 09/01/17 15:00 09/01/17 15:00 09/01/17 15:00 09/01/17 15:00 09/01/17 15:00 - Labs Labs: 09/01/17 06:11 09/01/17 06:11 PT 10.2 SECONDS (9.7-12.2) 08/30/17 00:48 INR 0.9 08/30/17 00:48 APTT 29 SECONDS (21-34) 08/30/17 00:48 Assessment and Plan (1) SVT (supraventricular tachycardia) Status: Acute Attending/Attestation - Attestation I have personally seen and examined this patient.: Yes I have fully participated in the care of the patient.: Yes I have reviewed all pertinent clinical information, including history, physical exam and plan: Yes Notes (Text): 10/01/17 23:40 outpt holter
--- NOTE | 2017-09-01 15:32 | CP.PCM.DIS ---
<BensonKori novak - Last Filed: 09/01/17 15:44> Provider - Provider Date of Admission: 08/30/17 02:27 Attending physician: Pawan Barlow MD Consults: Cardio: Dr. Eric Time Spent in preparation of Discharge (in minutes): 55 Hospital Course - Lab Results Lab Results: Most Recent Lab Values WBC 7.9 K/uL (4.8-10.8) 09/01/17 06:11 RBC 4.57 Mil/uL (3.80-5.20) 09/01/17 06:11 Hgb 14.0 g/dL (11.0-16.0) 09/01/17 06:11 Hct 38.6 % (34.0-47.0) 09/01/17 06:11 MCV 84.4 fL (81.0-99.0) 09/01/17 06:11 MCH 30.7 pg (27.0-31.0) 09/01/17 06:11 MCHC 36.3 g/dL (33.0-37.0) 09/01/17 06:11 RDW 14.0 % (11.5-14.5) 09/01/17 06:11 Plt Count 233 K/uL (130-400) 09/01/17 06:11 MPV 9.1 fL (7.2-11.7) 09/01/17 06:11 Neut % (Auto) 51.5 % (50.0-75.0) 09/01/17 06:11 Lymph % (Auto) 37.3 % (20.0-40.0) 09/01/17 06:11 [place] % (Auto) 7.0 % (0.0-10.0) 09/01/17 06:11 Eos % (Auto) 3.3 % (0.0-4.0) 09/01/17 06:11 Baso % (Auto) 0.9 % (0.0-2.0) 09/01/17 06:11 Neut # 4.0 K/uL (1.8-7.0) 09/01/17 06:11 Lymph # 2.9 K/uL (1.0-4.3) 09/01/17 06:11 [place] # 0.6 K/uL (0.0-0.8) 09/01/17 06:11 Eos # 0.3 K/uL (0.0-0.7) 09/01/17 06:11 Baso # 0.1 K/uL (0.0-0.2) 09/01/17 06:11 Neutrophils % (Manual) 29 % (50-75) L 08/30/17 00:48 Lymphocytes % (Manual) 56 % (20-40) H 08/30/17 00:48 Reactive Lymphs % 7 % (0-0) H 08/30/17 00:48 Monocytes % (Manual) 5 % (0-10) 08/30/17 00:48 Eosinophils % (Manual) 2 % (0-4) 08/30/17 00:48 Basophils % (Manual) 1 % (0-2) 08/30/17 00:48 Platelet Estimate Normal (NORMAL) 08/30/17 00:48 RBC Morphology Normal 08/30/17 00:48 ESR 25 mm/hr (0-20) H 08/31/17 08:21 PT 10.2 SECONDS (9.7-12.2) 08/30/17 00:48 INR 0.9 08/30/17 00:48 APTT 29 SECONDS (21-34) 08/30/17 00:48 D-Dimer, Quantitative < 200 ng/mlDDU (0-243) 08/30/17 00:48 Sodium 138 mmol/L (132-148) 09/01/17 06:11 Potassium 4.5 mmol/L (3.6-5.2) 09/01/17 06:11 Chloride 100 mmol/L (98-107) 09/01/17 06:11 Carbon Dioxide 26 mmol/L (22-30) 09/01/17 06:11 Anion Gap 17 (10-20) 09/01/17 06:11 BUN 18 mg/dL (7-17) H 09/01/17 06:11 Creatinine 0.7 MG/DL (0.7-1.2) 09/01/17 06:11 Est GFR ( Amer) > 60 09/01/17 06:11 Est GFR (Non-Af Amer) > 60 09/01/17 06:11 Random Glucose 82 mg/dL (65-105) 09/01/17 06:11 Hemoglobin A1c 5.3 % (4.2-6.5) 08/31/17 08:21 Calcium 9.3 mg/dl (8.6-10.4) 09/01/17 06:11 Magnesium 2.1 mg/dL (1.6-2.3) 09/01/17 06:11 Total Bilirubin 0.5 mg/dL (0.2-1.3) 09/01/17 06:11 AST 23 U/L (14-36) 09/01/17 06:11 ALT 32 U/L (9-52) 09/01/17 06:11 Alkaline Phosphatase 43 U/L (38-126) 09/01/17 06:11 Total Creatine Kinase 95 U/L (30-135) 08/30/17 14:43 CK-MB (Mass) 0.90 ng/mL (0.0-3.38) 08/30/17 14:43 Troponin I < 0.0120 ng/mL (0.00-0.120) 08/30/17 00:48 Troponin I, Quant 0.0170 ng/mL (0.00-0.120) 08/30/17 14:43 C-React Prot High Sens 0.28 mg/L (1.00-3.00) L 08/31/17 08:27 NT-Pro-B Natriuret Pep 380 pg/mL (0-900) 08/30/17 14:43 Total Protein 7.3 g/dL (6.3-8.3) 09/01/17 06:11 Albumin 4.0 g/dL (3.5-5.0) 09/01/17 06:11 Globulin 3.2 gm/dL (2.2-3.9) 09/01/17 06:11 Albumin/Globulin Ratio 1.2 (1.0-2.1) 09/01/17 06:11 Triglycerides 96 mg/dL (0-149) 08/31/17 08:27 Cholesterol 186 mg/dL (0-199) 08/31/17 08:27 LDL Cholesterol Direct 106 mg/dL (0-129) 08/31/17 08:27 HDL Cholesterol 61 mg/dL (30-70) 08/31/17 08:27 Free T4 0.96 ng/dL (0.78-2.19) 08/31/17 08:27 TSH 3rd Generation 1.54 mIU/L (0.46-4.68) 08/31/17 08:27 Urine Opiates Screen Negative (NEGATIVE) 08/30/17 23:01 Urine Methadone Screen Negative (NEGATIVE) 08/30/17 23:01 Ur Barbiturates Screen Negative (NEGATIVE) 08/30/17 23:01 Ur Phencyclidine Scrn Negative (NEGATIVE) 08/30/17 23:01 Ur Amphetamines Screen Negative (NEGATIVE) 08/30/17 23:01 U Benzodiazepines Scrn Negative (NEGATIVE) 08/30/17 23:01 U Oth Cocaine Metabols Negative (NEGATIVE) 08/30/17 23:01 U Cannabinoids Screen Negative (NEGATIVE) 08/30/17 23:01 Rheum Arthritis Panel Negative (NEGATIVE) 08/31/17 08:21 ELLIE 6 Profile Negative (NEGATIVE) 08/31/17 08:21 - Hospital Course Hospital Course: Upon Admission: CC: Palpitations This patient is a 52yo F w/ no PMhx who is coming to the hospital with sudden heart palpitations while she was having sex with her . This has never happened to her before. She denies any significant stress in her life, drug use , or excessive alcohol consumption in the recent past. She recently came back [facility] weeks ago, denies any sick contacts. Otherwise denies fevers/ chills, TAMAYO, CP, SOb, abdominal pain, N/V/D, dysuria/freq/urg or lower extremity pain/swelling. When she arrived in the ED, they gave her a total of 18mg of adenosine which resolved her SVT. She has not had any SVT's since then or heart palpitations. 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 As per cardiology patient is safe for discharge, with holter monitor. She will need to follow up with him as an outpatient. 1) SVT * patient had palpitations during intercourse * In ED, Adenosine 6mg IV X1, Adenosine 12mg IVX1, and then converted * on telemetry at [facility] * Pending echocardiogram * Cardiology (Dr. Eric) on board-->f/u recommendations * MELVIN negative X 3 * ESR: 25, CRP: low * ELLIE and RF pending * UDS: negative * Thyroid studies: within normal * Lipid panel: normal * Pending hgba1c * Patient is afebrile, not anemic, will check UDS * Patient sister recently diagnosed with lupus-->antinuclear antibody * If patient is asymptomatic and in SVT, attempt vagal manuevers or depending clinical situation f/u ACLS protocol 2) Abnormal Chest Xray * small granulomatous foci seen on portable chest x-ray * PA/Lateral chest xray 4 views: No focal consolidation. Re- demonstrated are at least 2 tiny granulomata left mid to lower lung field. Questionable mild biapical pleural thickening. Minor multilevel degenerative spondylosis of the thoracic spine * patient asymptomatic; no smoking history; no history of lung cancer in family This is a brief summary of the patient's hospital course. Please review EMR for full record. Discharge Exam - Head Exam Head Exam: ATRAUMATIC, NORMOCEPHALIC - Additional Findings Additional findings: - Constitutional Appears: Well, Non-toxic - Head Exam Head Exam: ATRAUMATIC - Eye Exam Eye Exam: EOMI, Normal appearance Pupil Exam: PERRL - ENT Exam ENT Exam: Mucous Membranes Moist - Neck Exam Neck Exam: Full ROM. absent: Lymphadenopathy - Respiratory Exam Respiratory Exam: Clear to Ausculation Bilateral, NORMAL BREATHING PATTERN. absent: Rales, Rhonchi, Wheezes - Cardiovascular Exam Cardiovascular Exam: REGULAR RHYTHM, +S1, +S2 - GI/Abdominal Exam GI & Abdominal Exam: Soft, Normal Bowel Sounds - Extremities Exam Extremities Exam: Full ROM. absent: Calf Tenderness - Back Exam Back Exam: NORMAL INSPECTION. absent: CVA tenderness (L), CVA tenderness (R) - Neurological Exam Neurological Exam: Alert, Awake, Oriented x3 - Psychiatric Exam Psychiatric exam: Normal Affect Discharge Plan - Discharge Medications Prescriptions: Metoprolol Tartrate 25 mg PO DAILY #30 tablet - Follow Up Plan Condition: STABLE Disposition: HOME/ ROUTINE Instructions: Metoprolol (By mouth), Supraventricular Tachycardia (DC), Holter Monitoring (DC), Heart Healthy Diet (DC) Additional Instructions: Please take metoprolol 25mg by mouth daily. Patient is to follow up with the [facility] to arrange for a referral for a director sales training. Patient was cleared by Cardiology, Dr. Eric to be discharged home. What is recommended is that you call tomorrow to make an appointment with the [facility] clinic. This clinic will provide your primary care. Once here you will get a referral for cardiology. The director sales training will set you up with a holter molter to monitor your heart. Please return to the ED if your symptoms worsen or return. Por favor, tome metoprolol 25 mg por va oral todos los ho. El paciente debe hacer un seguimiento con el [facility] para obtener guzman referencia para un cardilogo. Paciente fue autorizado por la cardiologa, el Dr. Eric para ser dado de linda en casa. Lo que se recomienda es que llame a tomororw para hacer un appoitnment con la clnica de [facility]. Esta clnica proporcionar spencer atencin primaria. Guzman vez aqu obtendr guzman referencia para la cardiologa. El cardi logo le preparar un molter holter para controlar spencer corazn. Por favor regrese a la [place] si guru sntomas empeoran o regresan. Referrals: [facility] [Outside] Kevyn Eric MD [Staff Provider] - <Pawan Barlow - Last Filed: 09/01/17 19:12> Provider - Provider Date of Admission: 08/30/17 02:27 Attending physician: Pawan Barlow MD Hospital Course - Lab Results Lab Results: Most Recent Lab Values WBC 7.9 K/uL (4.8-10.8) 09/01/17 06:11 RBC 4.57 Mil/uL (3.80-5.20) 09/01/17 06:11 Hgb 14.0 g/dL (11.0-16.0) 09/01/17 06:11 Hct 38.6 % (34.0-47.0) 09/01/17 06:11 MCV 84.4 fL (81.0-99.0) 09/01/17 06:11 MCH 30.7 pg (27.0-31.0) 09/01/17 06:11 MCHC 36.3 g/dL (33.0-37.0) 09/01/17 06:11 RDW 14.0 % (11.5-14.5) 09/01/17 06:11 Plt Count 233 K/uL (130-400) 09/01/17 06:11 MPV 9.1 fL (7.2-11.7) 09/01/17 06:11 Neut % (Auto) 51.5 % (50.0-75.0) 09/01/17 06:11 Lymph % (Auto) 37.3 % (20.0-40.0) 09/01/17 06:11 [place] % (Auto) 7.0 % (0.0-10.0) 09/01/17 06:11 Eos % (Auto) 3.3 % (0.0-4.0) 09/01/17 06:11 Baso % (Auto) 0.9 % (0.0-2.0) 09/01/17 06:11 Neut # 4.0 K/uL (1.8-7.0) 09/01/17 06:11 Lymph # 2.9 K/uL (1.0-4.3) 09/01/17 06:11 [place] # 0.6 K/uL (0.0-0.8) 09/01/17 06:11 Eos # 0.3 K/uL (0.0-0.7) 09/01/17 06:11 Baso # 0.1 K/uL (0.0-0.2) 09/01/17 06:11 Neutrophils % (Manual) 29 % (50-75) L 08/30/17 00:48 Lymphocytes % (Manual) 56 % (20-40) H 08/30/17 00:48 Reactive Lymphs % 7 % (0-0) H 08/30/17 00:48 Monocytes % (Manual) 5 % (0-10) 08/30/17 00:48 Eosinophils % (Manual) 2 % (0-4) 08/30/17 00:48 Basophils % (Manual) 1 % (0-2) 08/30/17 00:48 Platelet Estimate Normal (NORMAL) 08/30/17 00:48 RBC Morphology Normal 08/30/17 00:48 ESR 25 mm/hr (0-20) H 08/31/17 08:21 PT 10.2 SECONDS (9.7-12.2) 08/30/17 00:48 INR 0.9 08/30/17 00:48 APTT 29 SECONDS (21-34) 08/30/17 00:48 D-Dimer, Quantitative < 200 ng/mlDDU (0-243) 08/30/17 00:48 Sodium 138 mmol/L (132-148) 09/01/17 06:11 Potassium 4.5 mmol/L (3.6-5.2) 09/01/17 06:11 Chloride 100 mmol/L (98-107) 09/01/17 06:11 Carbon Dioxide 26 mmol/L (22-30) 09/01/17 06:11 Anion Gap 17 (10-20) 09/01/17 06:11 BUN 18 mg/dL (7-17) H 09/01/17 06:11 Creatinine 0.7 MG/DL (0.7-1.2) 09/01/17 06:11 Est GFR ( Amer) > 60 09/01/17 06:11 Est GFR (Non-Af Amer) > 60 09/01/17 06:11 Random Glucose 82 mg/dL (65-105) 09/01/17 06:11 Hemoglobin A1c 5.3 % (4.2-6.5) 08/31/17 08:21 Calcium 9.3 mg/dl (8.6-10.4) 09/01/17 06:11 Magnesium 2.1 mg/dL (1.6-2.3) 09/01/17 06:11 Total Bilirubin 0.5 mg/dL (0.2-1.3) 09/01/17 06:11 AST 23 U/L (14-36) 09/01/17 06:11 ALT 32 U/L (9-52) 09/01/17 06:11 Alkaline Phosphatase 43 U/L (38-126) 09/01/17 06:11 Total Creatine Kinase 95 U/L (30-135) 08/30/17 14:43 CK-MB (Mass) 0.90 ng/mL (0.0-3.38) 08/30/17 14:43 Troponin I < 0.0120 ng/mL (0.00-0.120) 08/30/17 00:48 Troponin I, Quant 0.0170 ng/mL (0.00-0.120) 08/30/17 14:43 C-React Prot High Sens 0.28 mg/L (1.00-3.00) L 08/31/17 08:27 NT-Pro-B Natriuret Pep 380 pg/mL (0-900) 08/30/17 14:43 Total Protein 7.3 g/dL (6.3-8.3) 09/01/17 06:11 Albumin 4.0 g/dL (3.5-5.0) 09/01/17 06:11 Globulin 3.2 gm/dL (2.2-3.9) 09/01/17 06:11 Albumin/Globulin Ratio 1.2 (1.0-2.1) 09/01/17 06:11 Triglycerides 96 mg/dL (0-149) 08/31/17 08:27 Cholesterol 186 mg/dL (0-199) 08/31/17 08:27 LDL Cholesterol Direct 106 mg/dL (0-129) 08/31/17 08:27 HDL Cholesterol 61 mg/dL (30-70) 08/31/17 08:27 Free T4 0.96 ng/dL (0.78-2.19) 08/31/17 08:27 TSH 3rd Generation 1.54 mIU/L (0.46-4.68) 08/31/17 08:27 Urine Opiates Screen Negative (NEGATIVE) 08/30/17 23:01 Urine Methadone Screen Negative (NEGATIVE) 08/30/17 23:01 Ur Barbiturates Screen Negative (NEGATIVE) 08/30/17 23:01 Ur Phencyclidine Scrn Negative (NEGATIVE) 08/30/17 23:01 Ur Amphetamines Screen Negative (NEGATIVE) 08/30/17 23:01 U Benzodiazepines Scrn Negative (NEGATIVE) 08/30/17 23:01 U Oth Cocaine Metabols Negative (NEGATIVE) 08/30/17 23:01 U Cannabinoids Screen Negative (NEGATIVE) 08/30/17 23:01 Rheum Arthritis Panel Negative (NEGATIVE) 08/31/17 08:21 ELLIE 6 Profile Negative (NEGATIVE) 08/31/17 08:21 Attending/Attestation - Attestation I have personally seen and examined this patient.: Yes I have fully participated in the care of the patient.: Yes I have reviewed all pertinent clinical information, including history, physical exam and plan: Yes Notes (Text): 09/01/17 19:11 Patient was seen and examined shortly after resident Exam, assessment and plan, discharge instructions were thoroughly gone over with the resident. Pawan Barlow D.O.
[2017-09-01 16:05] VITALS: BP 110/75; O2SAT 95
[2017-09-01 16:50] VITALS: PULSE 80
--- NOTE | 2017-09-02 13:57 | CARD ---
APPROVED REPORT EKG Measurement Heart [id number] <Conclusion> Sinus tachycardia Nonspecific ST abnormality Abnormal ECG
--- NOTE | 2017-09-02 14:26 | CARD ---
APPROVED REPORT EXAM: Two-dimensional and M-mode echocardiogram with Doppler and color Doppler. Other Information Quality : GoodRhythm : NSR INDICATION Palpitations SVT 2D DIMENSIONS IVSd0.8 (0.7-1.1cm)LVDd4.0 (3.9-5.9cm) PWd0.7 (0.7-1.1cm)LVDs3.2 (2.5-4.0cm) FS (%) 19.6 %LVEF (%)40.8 (>50%) M-Mode DIMENSIONS Left Atrium (MM)2.93 (2.5-4.0cm)Aortic Root2.65 (2.2-3.7cm) Aortic Cusp Exc.1.91 (1.5-2.0cm) Mitral Valve MV E Ulvqizak13.2cm/sMV A Llepbbcm40.2cm/sE/A ratio0.7 TDI E/Lateral E'0.0E/Medial E'0.0 Tricuspid Valve TR Peak [id number]/sTR Peak Gr.[id number] LEFT VENTRICLE The left ventricle is normal size. There is normal left ventricular wall thickness. The left ventricular function is normal. The left ventricular ejection fraction is within the normal range. There is normal LV segmental wall motion. The left ventricular diastolic function is normal. No left ventricle thrombus noted on this study. There is no ventricular septal defect visualized. There is no left ventricular aneurysm. There is no mass noted in the left ventricle. RIGHT VENTRICLE The right ventricle is normal size. There is normal right ventricular wall thickness. The right ventricular systolic function is normal. ATRIA The left atrium size is normal. The right atrium size is normal. The interatrial septum is intact with no evidence for an atrial septal defect. AORTIC VALVE The aortic valve is normal in structure. No aortic regurgitation is present. There is no aortic valvular stenosis. There is no aortic valvular vegetation. MITRAL VALVE The mitral valve is normal in structure. There is no mitral valve stenosis. There is no mitral valve regurgitation noted. TRICUSPID VALVE The tricuspid valve is normal in structure. There is no tricuspid valve regurgitation noted. PULMONIC VALVE The pulmonary valve is normal in structure. There is no pulmonic valvular regurgitation. GREAT VESSELS The aortic root is normal in size. The ascending aorta is normal in size. The pulmonary artery is normal. The IVC is normal in size and collapses >50% with inspiration. PERICARDIAL EFFUSION There is no pericardial effusion. <Conclusion> NORMAL STUDY. LVEF IS 60%.
--- NOTE | 2017-09-04 15:43 | CARD ---
APPROVED REPORT EKG Measurement Heart [id number] <Conclusion> Normal sinus rhythm Normal ECG
--- NOTE | 2017-09-04 15:43 | CARD ---
APPROVED REPORT EKG Measurement Heart [id number] <Conclusion> Supraventricular tachycardia Marked ST abnormality, possible inferior subendocardial injury Abnormal ECG
== END 2017-09-01 18:15 | disposition home or self-care (01) ==
LOC: C.ER 00:13 → C.6T 02:27
PROVIDERS: ADMIT Family Medicine; ATTEND Family Medicine
DX: I47.1 Supraventricular tachycardia (principal); Z83.3 Family history of diabetes mellitus; Z98.51 Tubal ligation status
CPT/HCPCS: 36415; 71010; 71020; 80053; 80061; 80324; 80345; 80346; 80349; 80353; 80358; 80361; 83036; 83735; 83880; 83992; 84439; 84443; 84484; 85025; 85378; 85610; 85651; 85730; 86038; 86140; 86430; 93005; 93306; 96372; 96374; 99285; G0378; J0153; J1650; J7040